=== PATIENT | female | born 2000 | race Two or more races ===

== ENCOUNTER 2025-06-13 15:45 | Emergency (ER) | payer OTHER ==
[~2025-06-13] VITALS: Ht 157.5 cm; Wt 59.0 kg
[2025-06-13] MEDS ORDERED: 0.9 % SODIUM CHLORIDE 1,000 ML IV ONE (18:15)
[2025-06-13] MEDS ORDERED: LORazepam 2 MG/ML VIAL IV PUSH ONE (18:15)
[2025-06-13 19:11] LABS: BASO % 0.7 % (0.1-1.2); EOS # 0.09 (0.04-0.54); EOS % 1.2 % (0.7-7.0); LYMPH # 2.69 (1.18-3.74); LYMPH % 35.4 % (19.3-53.1); MEAN PLATELET VOLUME 11.10 fl (9.4-12.4); MONO # 0.36 (0.24-0.82); MONO % 4.7 % (4.7-12.5); NEUT # 4.39 (1.56-6.13); NEUT % 57.9 % (34.0-71.1); RED CELL DISTRIBUTION WIDTH 13.6 % (11.6-14.4)
[2025-06-13] MEDS ORDERED: LORazepam 2 MG/ML VIAL ONE (19:21)
[2025-06-13 19:38] LABS: ALT/SGPT 21.0 U/L (12-78); AST/SGOT 10.0 U/L (15-37); BILIRUBIN TOTAL 0.31 mg/dL (0.3-1.2); BUN CREA RATIO 31.0 (7.0-25.0); CREATININE SERUM 0.64 mg/dL (0.55-1.02); GFR 111.31; GLOBULINA 3.4 G/DL (2.4-3.5); GLUCOSE FASTING 86.0 mg/dL (65-100); OSMOLALITY SERUM 283.0 MOSM/KG (275-295); PHOSPHOKINASE CREATININE 34.0 U/L (26-192)
[2025-06-14] MEDS ORDERED: KEPPRA500 MG PO (01:20)
== END 2025-06-14 02:31 | disposition home or self-care (01) ==
LOC: ER 15:45
PROVIDERS: Behavior Technician
DX: G40.109 Localization-related (focal) (partial) symptomatic epilepsy and epileptic syndromes with simple partial seizures, not intractable, without status epilepticus (principal); R48.8 Other symbolic dysfunctions; Z91.018 Allergy to other foods

== ENCOUNTER 2025-06-23 14:30 | Inpatient (IN) | payer OTHER ==
[~2025-06-23] VITALS: Ht 152.4 cm; Wt 57.2 kg
[~2025-06-23 14:30] MED LIST: KEPPRA500 MG PO
--- NOTE | 2025-06-23 14:58 | NUR ---
PACIENTE ALERTA Y ORIENTADA X3 EN COMPANIA DE FAMILIAR QUIEN REFIERE QUE PADECE DE CONVULCIONES Y [place] ESTADO PRESENTANDO EPISODIOS DE CONVULCIONES EN [place]. SE MONITOREAN S/V, SE LE REALIZA EKG, SE CONECTA A MONITOR CARDIACO Y SE MANTIENE BAJO OBSERVACION.
[2025-06-23] MEDS ORDERED: KETOROLAC TROMETHAMINE 30 MG VIAL IV ONE (16:00)
[2025-06-23] MEDS ORDERED: DEXAMETHASONE SODIUM PHOSPHATE 4 MG/ML VIAL IV ONE (16:00)
[2025-06-23 17:22] LABS: BASO % 0.5 % (0.1-1.2); EOS # 0.07 (0.04-0.54); EOS % 0.5 % (0.7-7.0); LYMPH # 2.40 (1.18-3.74); LYMPH % 18.7 % (19.3-53.1); MEAN PLATELET VOLUME 11.70 fl (9.4-12.4); MONO # 0.49 (0.24-0.82); MONO % 3.8 % (4.7-12.5); NEUT # 9.79 (1.56-6.13); NEUT % 76.3 % (34.0-71.1); RED CELL DISTRIBUTION WIDTH 13.5 % (11.6-14.4)
--- NOTE | 2025-06-23 17:41 | NUR ---
SE REALIZA LAB Y SE ADMINISTRA TX DIDI ORDEN MEDICA BAJO MEDIDAS ASEPTICAS. SE ORIENTA PTE QUIEN REFIERE ENTENDER Y ACEPTAR.
[2025-06-23 17:55] LABS: INR 0.99
[2025-06-23 18:14] LABS: ALT/SGPT 20.0 U/L (12-78); AST/SGOT 11.0 U/L (15-37); BILIRUBIN TOTAL 0.41 mg/dL (0.3-1.2); BUN CREA RATIO 15.0 (7.0-25.0); CREATININE SERUM 0.65 mg/dL (0.55-1.02); GFR 109.34; GLOBULINA 3.5 G/DL (2.4-3.5); GLUCOSE FASTING 87.0 mg/dL (65-100); OSMOLALITY SERUM 283.0 MOSM/KG (275-295)
[2025-06-23] MEDS ORDERED: MORPHINE SULFATE 2 MG/ML SYRINGE IV ONE (21:30)
[2025-06-23] MEDS ORDERED: 0.9 % SODIUM CHLORIDE 1,000 ML IV ONE (21:30)
--- NOTE | 2025-06-23 22:29 | NUR ---
PTE REHUSA QUE SE LE REALICE MUESTRA DE ANTONINO HCG
--- NOTE | 2025-06-24 07:50 | NUR ---
SE RECIBE PACIENTE ALERTA Y ORIENTADA X3. LA MISMA EN DESCANSO EN CAMA CON LAS BARANDAS ELEVADAS. CANALIZADA EN BRAZO IZQ # 18 PATENTE Y TABBY DE DOLOR BAJANDO CON UN 0.9NSS @ 75 ML/HR. LA MISAM CONSULTA DR. KEVIN WHEELER POR SEIZURES
--- NOTE | 2025-06-24 07:51 | NUR ---
PENDIENTE A MUESTRA DE U/A
[2025-06-24] MEDS ORDERED: ACETAMINOPHEN 500 MG GEL..CAP PO PRN (12:30)
[2025-06-24] MEDS ORDERED: ACETAMINOPHEN 325 MG TABLET PO PRN (12:30)
[2025-06-24] MEDS ORDERED: 0.9 % SODIUM CHLORIDE 1,000 ML IV SCH (12:30)
[2025-06-24] MEDS ORDERED: ONDANSETRON HCL 4 MG in 0.9 % SODIUM CHLORIDE 50 ML IV PRN (12:30)
[2025-06-24 13:31] VITALS: BP 90/70
[2025-06-24 15:34] LABS: URINE APPEARANCE Clear; URINE BILIRRUBIN Negative (NEGATIVE); URINE BLOOD Large; URINE COLOR Yellow; URINE GLUCOSE Negative (NEGATIVE); URINE KETONE Negative (NEGATIVE); URINE LEUKOCYTE Negative; URINE NITRATE Negative; URINE PROTEIN Negative (NEGATIVE); URINE UROBILINOGEN 0.2 E.U./dl
[2025-06-24 15:39] LABS: URINE BACTERIA 59.9 uL (0.0-1933); URINE RBC 515.0 uL (0.0-20.8); URINE WBC 4.9 uL (0.0-23.2)
[2025-06-24 15:54] LABS: URINE CAST 0.00 uL (0.0-1.40); URINE EPITHELIAL CELLS 0.7 uL (0.0-38.8)
[2025-06-24 17:51] VITALS: BP 87/55
[2025-06-24 17:52] VITALS: BP 83/56
[2025-06-25 03:38] VITALS: BP 90/60; O2SAT 98
[2025-06-25 08:38] VITALS: BP 90/55; O2SAT 99
[2025-06-25 17:04] VITALS: BP 90/60; O2SAT 99
[2025-06-26 02:06] VITALS: BP 84/50; O2SAT 100
[2025-06-26 08:16] VITALS: BP 84/47; O2SAT 99
[2025-06-26] MEDS ORDERED: LORazepam 2 MG/ML VIAL IM PRN (13:15)
[2025-06-26 16:55] VITALS: BP 93/52; O2SAT 99
[2025-06-27 02:43] VITALS: BP 87/55
[2025-06-27 09:38] VITALS: BP 153/69; BP 96/60; O2SAT 99
[2025-06-27 16:21] VITALS: BP 88/54; O2SAT 99
[2025-06-28 00:23] VITALS: BP 90/61; O2SAT 99
[2025-06-28 05:55] LABS: BASO % 0.6 % (0.1-1.2); EOS # 0.08 (0.04-0.54); EOS % 1.7 % (0.7-7.0); LYMPH # 2.28 (1.18-3.74); LYMPH % 48.0 % (19.3-53.1); MEAN PLATELET VOLUME 11.60 fl (9.4-12.4); MONO # 0.25 (0.24-0.82); MONO % 5.3 % (4.7-12.5); NEUT # 2.10 (1.56-6.13); NEUT % 44.2 % (34.0-71.1); RED CELL DISTRIBUTION WIDTH 13.5 % (11.6-14.4)
[2025-06-28 06:42] LABS: BUN CREA RATIO 17.0 (7.0-25.0); CREATININE SERUM 0.6 mg/dL (0.55-1.02); GFR 119.92; GLUCOSE FASTING 86.0 mg/dL (65-100); OSMOLALITY SERUM 285.0 MOSM/KG (275-295)
[2025-06-28 08:21] VITALS: BP 119/61
== END 2025-06-28 14:16 | disposition home or self-care (01) | DRG 880 ==
LOC: ER 14:30 → MEDI 06-24 12:21
PROVIDERS: ADMIT Student in an Organized Health Care Education/Training Program; ATTEND Student in an Organized Health Care Education/Training Program
PROC: B020ZZZ Computerized Tomography (CT Scan) of Brain (ICD-10-PCS; principal; 2025-06-23)
PROC: BW4GZZZ Ultrasonography of Pelvic Region (ICD-10-PCS; 2025-06-23)
PROC: B030ZZZ Magnetic Resonance Imaging (MRI) of Brain (ICD-10-PCS; 2025-06-26)
DX: F44.4 Conversion disorder with motor symptom or deficit (principal); R29.818 Other symptoms and signs involving the nervous system; N94.6 Dysmenorrhea, unspecified; F41.8 Other specified anxiety disorders
CPT/HCPCS: 70551